=== PATIENT | female | born 1965 | race Caucasian/White ===

== ENCOUNTER 2018-03-21 18:04 | Emergency (ER) | payer OTHER ==
[2018-03-21 18:17] VITALS: RESP 18; TEMP 98.8
--- NOTE | 2018-03-21 19:00 | ED PDOC ---
Arrival/HPI - General Chief Complaint: Abnormal Skin Integrity Time Seen by Provider: 03/21/18 18:58 Historian: Patient - History of Present Illness Narrative History of Present Illness (Text): 03/21/18 18:59 52 y/o female, no significant pmh, nkda, post menopausal, c/o rash on the rt. neck rash x 5 days. Pt. has been having burning/itching rash on the rt. sided neck and spread to the lower neck region for the past 2 days, no fever or chills, eating and drinking well, no night sweat, no palpitation, no night sweat, no other medical or psychological complaints. Past Medical History - Provider Review Nursing Documentation Reviewed: Yes - Psychiatric Hx Substance Use: No Family/Social History - Physician Review Nursing Documentation Reviewed: Yes Family/Social History: Unknown Family HX Smoking Status: Never Smoked Hx Alcohol Use: No Hx Substance Use: No Allergies/Home Meds Allergies/Adverse Reactions: Allergies No Known Allergies Allergy (Verified 03/21/18 18:17) Review of Systems - Review of Systems Constitutional: absent: Fatigue, Fevers Eyes: absent: Vision Changes ENT: absent: Hearing Changes Respiratory: absent: SOB, Cough Cardiovascular: absent: Chest Pain Gastrointestinal: absent: Abdominal Pain, Nausea, Vomiting Skin: Rash, Pruritis, Skin Lesions. absent: Laceration, Abscess, Ulcer, Cellulitis Neurological: absent: Headache, Dizziness Psychiatric: absent: Anxiety, Depression, Suicidal Ideation Physical Exam Vital Signs Reviewed: Yes Vital Signs Temp Pulse Resp BP Pulse Ox 03/21/18 18:15 98.8 F 96 H 18 124/89 99 Temperature: Afebrile Blood Pressure: Normal Pulse: Regular Respiratory Rate: Normal Appearance: Positive for: Well-Appearing, Non-Toxic, Comfortable Pain Distress: Moderate Mental Status: Positive for: Alert and Oriented X 3 - Systems Exam Head: Present: Atraumatic, Normocephalic Pupils: Present: PERRL Extroacular Muscles: Present: EOMI Conjunctiva: Present: Normal Mouth: Present: Moist Mucous Membranes Neck: Present: Normal Range of Motion, Trachea Midline. No: Meningeal Signs, MIDLINE TENDERNESS, Paraspinal Tenderness, Lymphadenopathy Respiratory/Chest: Present: Clear to Auscultation, Good Air Exchange. No: Respiratory Distress, Accessory Muscle Use Cardiovascular: Present: Regular Rate and Rhythm, Normal S1, S2. No: Murmurs Abdomen: No: Tenderness, Distention, Peritoneal Signs Back: Present: Normal Inspection Upper Extremity: Present: Normal Inspection. No: Cyanosis, Edema Lower Extremity: Present: Normal Inspection. No: Edema Neurological: Present: GCS=15, CN II-XII Intact, Speech Normal Skin: Present: Warm, Dry, Rashes (rt. sided neck visible vesicular lesions noted on the rt. C3C4, no cellulitis or streaking. ), Normal Color Psychiatric: Present: Alert, Oriented x 3, Normal Insight, Normal Concentration Medical Decision Making ED Course and Treatment: 03/21/18 19:14 -Percocet/prednisone/valtrex/motrin -Contact precaution -Observe and reassess 03/21/18 20:25 -Pt. feels better, eating and drinking well, advised contact precaution and recommend pmd follow up. -Discharge home with valtrex/prednisone/motrin/neurontin, contact precaution, stay hydrated, follow up with your own pmd and infectious disease/financial director within 2 days, return to the ER for any new or worsening signs or symptoms. - PA / CATEGORY SPECIALIST / Resident Statement / has reviewed & agrees with the documentation as recorded. Disposition/Present on Arrival - Present on Arrival Any Indicators Present on Arrival: No History of DVT/PE: No History of Uncontrolled Diabetes: No Urinary Catheter: No History of Decub. Ulcer: No History Surgical Site Infection Following: None - Disposition Have Diagnosis and Disposition been Completed?: Yes Diagnosis: Shingles Disposition: HOME/ ROUTINE Disposition Time: 19:19 Patient Plan: Discharge Patient Problems: Current Active Problems Problem Status Onset Shingles Acute Condition: IMPROVED Discharge Instructions (ExitCare): Shingles (ED) Additional Instructions: -Discharge home with valtrex/prednisone/motrin/neurontin, contact precaution, stay hydrated, follow up with your own pmd and infectious disease/financial director within 2 days, return to the ER for any new or worsening signs or symptoms. Prescriptions: Gabapentin [Neurontin] 300 mg PO BID PRN #14 cap PRN Reason: Other Ibuprofen [Motrin] 600 mg PO QID PRN #35 tab PRN Reason: Other Loratadine [Claritin] 10 mg PO DAILY PRN #7 tab PRN Reason: Other predniSONE [Prednisone] 2 tab PO DAILY #8 tab valACYclovir [Valtrex] 1 gm PO TID #21 tab Referrals: FAMILY PROVIDER,NO [Primary Care Provider] - Follow up with primary Efra Kaiser MD [Staff Provider] - Follow up with primary Veronica Peacock MD [Staff Provider] - Follow up with primary [facility] [place] [Outside] - Follow up with primary Forms: [facility] ([place]), WORK NOTE
[2018-03-21] MEDS ORDERED: Oxycodone/Acetaminophen 5/325 mg Tab PO STA (19:07)
[2018-03-21 22:09] VITALS: BP 125/75; PULSE 89; O2SAT 100
== END 2018-03-21 20:30 | disposition home or self-care (01) ==
LOC: ED 18:04
DX: B02.9 Zoster without complications (principal)